=== PATIENT | female | born 1990 | race Caucasian/White ===

== ENCOUNTER 2019-08-08 16:35 | Emergency (ER) | payer OTHER, SELFPAY ==
[2019-08-08 16:55] VITALS: BP 96/52; PULSE 100; RESP 16; TEMP 37.2; O2SAT 100
[2019-08-08 17:02] VITALS: BP 96/52; PULSE 100; RESP 16; TEMP 37.2; O2SAT 100
--- NOTE | 2019-08-08 17:05 | ED.GENADULT ---
HPI - General Adult General Chief complaint: Seizure Stated complaint: seizures Time Seen by Provider: 08/08/19 17:05 History of Present Illness HPI narrative: 29-year-old female presents with complaints of needing her seizure medication Keppra 750mg twice a day refilled due to her neurologist retiring without her knowledge for the past 4 days. Jeremiah says she was notified of the neurologist retiring Wednesday08/04/19 by her pharmacy when she attempted to re-order her Keppra per text. Keppra last on 08/07/19. Last seizure activity 05/11. Seizures are controlled with medications. The patient reports they have not been diagnosed with COVID-19. The patient reports they are not waiting for the results of a COVID-19 lab test. The patient reports they do not have fever, chills, weakness, fatigue, myalgia, or facial swelling. The patient reports they do not have a new or worsening cough or shortness of breath. Denies chest pain. The patient reports they do not have any rhinorrhea, congestion, sore throat, nausea, vomiting, abdominal pain, and diarrhea. Tolerating po intake well. Denies recent traveling. Denies concerns for COVID-19 or exposures been home since [id number] order except for essential household needs, working, and return home. At this time, patient is not suspected of having COVID-19. Some parts of this dictation were generated by voice recognition software and may contain typographical and/or grammatical inaccuracies. Related Data Home Medications Medication Instructions Recorded Confirmed clonazepam 0.5 mg TID PRN 08/08/19 08/08/19 divalproex 500 mg PO BID 08/08/19 08/08/19 levetiracetam 750 mg PO BID 08/08/19 08/08/19 Allergies Allergy/AdvReac Type Severity Reaction Status Date / Time ketorolac Allergy Unknown Hives Verified 08/08/19 16:58 amoxicillin AdvReac Unknown ANXIETY Verified 01/02/19 19:04 milk AdvReac Unknown Diarrhea Verified 01/02/19 19:04 Penicillins AdvReac Unknown Nervousness Verified 01/02/19 19:04 Grass Allergy Severe HIVES Uncoded 01/02/19 19:04 Review of Systems Review of Systems: Narrative: CONSTITUTIONAL: Denies fever, chills, sweats. EYES: Denies visual changes, redness, discharge. ENT: Denies rhinorrhea, congestion, sore throat, otalgia. CARDIOVASCULAR: Denies chest pain, palpitations, edema. RESPIRATORY: Denies dyspnea, wheezing, cough. GASTROINTESTINAL: Denies abdominal pain, nausea, vomiting, diarrhea. GENITOURINARY: Denies dysuria, hematuria, abnormal discharge SKIN: Denies rash or itching. MUSCULOSKELETAL: Denies acute back pain, joint pain, or myalgia. NEUROLOGIC: Denies numbness or focal weakness. Needs medication refill. PSYCHIATRIC: Denies anxiety or depression. All other systems reviewed & are unremarkable except as noted in HPI and below. [facility] Past Medical History Medical History (Updated 08/09/19 @ 00:00 by Yue Pittman) Anxiety Pelvic floor dysfunction Seizures Sponge kidney Surgical History Surgical History (Updated 08/08/19 @ 17:19 by AMERICA Mack) No significant past surgical history Family History Family History (Updated 08/08/19 @ 17:20 by AMERICA Mack) Father Hypertension Mother Depression Social History Social History (Updated 08/08/19 @ 17:21 by AMERICA Mack) Smoking status: Former smoker Second hand tobacco smoke exposure: No Alcohol intake: former Substance use: never Living arrangements: with friend(s) Occupation/Education: unemployed Gender identity (if verbalized by the patient): Female Comments At time of signature, agree with nurse past medical, surgical, social, and family history. There is relevant patient's history pertinent to the presenting complaint but no relevant family history pertinent to the presenting complaint. Exam Narrative: Exam Narrative: GENERAL: This is a well-nourished, well-developed patient, in no apparent distress. Talks in full sentence
== END 2019-08-08 17:30 | disposition home or self-care (01) ==
PROVIDERS: Emergency Provider Nurse Practitioner Family
DX: R56.9 Unspecified convulsions (principal); Z76.0 Encounter for issue of repeat prescription; Z87.891 Personal history of nicotine dependence
CPT/HCPCS: 99213; G0463

== ENCOUNTER 2019-11-23 13:30 | Outpatient (RCR) | payer OTHER, SELFPAY ==
--- NOTE | 2019-10-10 16:58 | PTOPEVAL ---
INITIAL PHYSICAL THERAPY EVALUATION and PLAN OF CARE Thank you for referring Todd Cruz to [facility]. She will be seen 1x/wk x 6 wks. Please review, sign, date and return this plan of care OMAYRA. I agree with and certify that the following plan of care is medically necessary. Referring Physician Date Admitting Provider: Attending Provider: PHYSICIAN NOT ON STAFF Referring Provider: *PT Outpatient Evaluation Start: 10/10/19 14:51 Freq: Status: Active Protocol: Document 10/10/19 14:45 ROMAN (Rec: 10/10/19 15:58 ROMAN [id number]) Therapy Assessment Status Assessment Status Assessment Status Evaluation Outpatient Past Medical History Past Medical History Source of Past Medical History Recalled from Previous Visit, Confirmed with Patient/Family Neurological History Hx Seizures Yes Cardiovascular History Hx Cardiac Disorders No Significant History Respiratory History Hx Respiratory Disorders No Significant History Gastrointestinal History Hx Gastrointestinal Disorders No Significant History Genitourinary History Hx Other Genitourinary Disorders Yes: interstital cystitis/ spongy kidney Musculoskeletal History Hx Musculoskeletal Disorders No Significant History Hematological History Hx Hematological Disorders No Significant History Endocrine History Hx Endocrine Disorders No Significant History HEENT History Hx HEENT Disorders No Significant History Integumentary History Hx Skin Disorders No Significant History Reproductive History Hx Endometriosis Yes Psychosocial History Hx Anxiety Yes Pain History History of Any Previous or Ongoing No Significant History Instance of Pain Anesthesia History Hx Anesthesia Reactions No Significant History Evaluation Information Problem Diagnosis , myalgia of pelvic floor Onset stiffness with midback/pelvis/ hips - start of Subjective Information Gestation - 19 wks due date Query Text:As Reported By Patient/ 03/04/2020 Having increase Family in discomfort with mid back and hips - started about time she got - felt like growing pains and stiffness Discomfort has gotten worse - body likes to lock out. Has been doing more walking lately - feels like a strain, but if doesn't will get stiff. Going to bathroom is easier
--- NOTE | 2019-11-16 14:56 | PCPTNOTE ---
Patient called earlier & cancelled scheduled appointment this date due to transportation issue.
--- NOTE | 2019-11-23 16:23 | PTOPEVAL ---
PHYSICAL THERAPY DISCHARGE SUMMARY Thank you for referring Jeremiah Cruz to [facility].? Melida has been seen for 6 visits. Progress was made towards goals set but pain levels are still elevated. She does have a HEP. At end point with PT at this time. Discharge from PT. I agree with Jeremiah's discharge from PT. Referring Physician Date Admitting Provider: Attending Provider: PHYSICIAN NOT ON STAFF Referring Provider: *PT Outpatient Evaluation Start: 10/10/19 14:51 Freq: Status: Active Protocol: Document 11/23/19 13:30 ROMAN (Rec: 11/23/19 14:32 ROMAN [id number]) Therapy Assessment Status Assessment Status Assessment Status Discharge Evaluation Information Problem Subjective Information Jeremiah reports having an Query Text:As Reported By Patient/ episode of increased back pain Family after last treatment - 2 days after treatment. Still having increased back pain/ stiffness in mornings. Pain Assessment Timing of Pain Assessment Timing of Pain Assessment Assessment Pain Scale Pain Scale Used Numeric (1 - 10) Self Report Pain Assessment Bilateral Hip(s) Reported Pain Level 3 Lowest Pain Intensity 3 Greatest Pain Intensity 7 Posterior Back Reported Pain Level 7 Lowest Pain Intensity 6 Greatest Pain Intensity 9 Pain Score Pain Score 3,7: Self Report Cervical and Lumbar ROM Lumbar ROM Lumbar Flexion (0-90) 40 Query Text:Active in Degrees Lumbar Extension (0-40) 20 Query Text:Active in Degrees Lumbar Lateral Flexion Right (0-40) 15 Query Text:Active in Degrees Lumbar Lateral Flexion Left (0-40) 15 Query Text:Active in Degrees Lumbar Comments increased pain with side bending to L - popping felt in mid thoracic spine Thoracic rotation - L - WNL R - ~ 75% of motion to L - increase discomfort present Palpation Assessment Palpation Palpation pelvic/sacral symmetry in standing - equal SIJ mobility present Good rib cage mobility throughout Improved Squish mobility testing - fairly symmetrical Increased symmetry with trunk/ pelvic posture while in supine Manual Therapy Manual Therapy Manual Therapy Location entire spine,cranial Patient Position
== END 2019-11-28 10:16 | disposition home or self-care (01) ==
LOC: ANHPT 13:30
DX: Z34.90 Encounter for supervision of normal pregnancy, unspecified, unspecified trimester (principal); M79.18 Myalgia, other site
CPT/HCPCS: 97110; 97140; 97162

== ENCOUNTER 2020-08-06 11:00 | Outpatient (RCR) | payer OTHER, SELFPAY ==
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
--- NOTE | 2020-06-25 11:31 | PCPTNOTE ---
Patient did not show up for scheduled appointment this date. Phone call made - pt forgot. Reminded her about her next appointment.
--- NOTE | 2020-07-02 16:59 | PTOPEVAL ---
PHYSICAL THERAPY RE-EVALUATION and UPDATED PLAN OF CARE Thank you for referring Jeremiah Cruz to [facility].? Jeremiah has been seen x 5 visits in PT. Gains are being made towards reduction of back and pelvic floor pain. There has been increase in reduction of tenderness with palpation of levator ani and surrounding tissues. Jeremiah will continue to benefit from skilled PT and she is scheduled to be seen 1x/week for 6 weeks. Please review, sign, date and return this plan of care OMAYRA. I agree with and certify that the following plan of care is medically necessary. Referring Physician Date Admitting Provider: Attending Provider: Susan Conner MD Referring Provider: Therapy Assessment Status Assessment Status Assessment Status Re-evaluation Evaluation Information Problem Diagnosis pelvic pain in female, levator spasm Subjective Information Jeremiah reports that her back Query Text:As Reported By Patient/ pain and discomfort with BM Family have gotten a little better - 10-15%. Hasn't had intercourse for awhile. Pain Assessment Self Report Pain Assessment Back Reported Pain Level 6 Lowest Pain Intensity 6 Greatest Pain Intensity 8 Pelvis Reported Pain Level 7 Lowest Pain Intensity 7 Greatest Pain Intensity 9 Palpation Assessment Palpation Palpation in standing - R anterior innominate present - + R standing flexion test in supine - R anterior innominate - + R Squish test in prone - L on L sacral dysfunction; P-A mob - to sacrum - tender throughout, L5 -3 P-A glides - increased tenderness Lateral glide L5/ S1 - decreased L to R Pelvic Health Evaluation Pelvic Floor Assessment Permission Received for External/ Yes Internal Perineal Exam Internal Perineal Body Palpation no increase in tenderness at introitus, L levator ani, tenderness present at 9 o' clock region - decreased tissue tension throughout - even in region of increased tenderness PT Clinical Summary Clinical Summary Protocol: PTEVCODE PT Clinical Summary Vulvar Pain Functional Questionnaire - 12 pts Jeremiah has made increased progress in regards to decreased tenderness and
--- NOTE | 2020-07-09 11:37 | PCPTNOTE ---
Pt called and cancelled due to ill child.
--- NOTE | 2020-08-13 13:39 | PCPTNOTE ---
Patient called & cancelled scheduled appointment this date due to unknown reason. Pt to call and reschedule re-eval.
--- NOTE | 2020-08-27 18:16 | PCPTNOTE ---
PHYSICAL THERAPY DISCHARGE SUMMARY Admitting Provider: Attending Provider: Susan Conner MD Patient:Jeremiah Cruz Date of :1990 Jeremiah has not returned for any further treatments since 08/06/2020, therefore she will be discharged at this time. Jeremiah?s initial visit was on 05/28/2020 09:30 and she had a total of 10 visits. Jeremiah needed to cancel her last several visits, re-evaluation was not able to be done. The goals have been partially met. Thank you for referring Jeremiah to [facility]. Please review, sign, date and return this discharge summary OMAYRA. I have been updated about Jeremiah's current status and I agree with discharge from the above service at this time. Referring Physician Date
== END 2020-08-26 23:59 | disposition home or self-care (01) ==
LOC: ANHPT 11:00
DX: R10.2 Pelvic and perineal pain (principal); M62.838 Other muscle spasm
CPT/HCPCS: 97110; 97140; 97161

== ENCOUNTER 2021-01-07 15:30 | Outpatient (RCR) | payer OTHER, SELFPAY ==
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
--- NOTE | 2020-12-03 09:55 | PCPTNOTE ---
Patient did not show up for scheduled appointment this date. Jeremiah was phoned. She had been trying to call front clerk unsuccessfully. She has tested + for COVID. Will try to get more appointments rescheduled/scheduled.
--- NOTE | 2020-12-19 16:38 | PTOPEVAL ---
PHYSICAL THERAPY RE-EVALUATION and UPDATED PLAN OF CARE Thank you for referring Jeremiah Cruz to [facility].? Jeremiah has been seen x 4 visits - she had to be quarantined due to COVID, thus was not able to complete initial plan of care. She has not met goals set, she will benefit from continued skiilled PT 1x/week for 4 weeks. Please review, sign, date and return this plan of care OMAYRA. I agree with and certify that the following plan of care is medically necessary. Referring Physician Date Admitting Provider: Attending Provider: Susan Conner MD Referring Provider: Therapy Assessment Status Assessment Status Assessment Status Re-evaluation Evaluation Information Problem Diagnosis pelvic pain in female, levator spasm Subjective Information Jeremiah reports that there Query Text:As Reported By Patient/ has been increase in stress Family last week or so - increase in discomfort and tightness with back. Her mother did have COVID, but she and her son did not come down with symptoms. She did have a COVID injection 2 days ago - L arm is sore from that and mild reaction occurred that night. Still having discomfort when having a bowel movement. Jeremiah reported that she felt much better after treatment today. Pain Assessment Timing of Pain Assessment Timing of Pain Assessment Pre-Treatment Pain Scale Pain Scale Used Numeric (1 - 10) Self Report Pain Assessment Pelvis Reported Pain Level 7 Pain Description Cramping,Soreness,Tightness Lowest Pain Intensity 3 Greatest Pain Intensity 9 Additional Pain Comments increase stress level lately, received COVID vaccine 12/17/20 Pain Score Pain Score 7: Self Report Interventions Used Interventions Used By Clinicians Exercise,Manual Therapy Techniques Cervical and Lumbar ROM Lumbar ROM Lumbar Flexion (0-90) 15 Query Text:Active in Degrees Lumbar Extension (0-40) 15 Query Text:Active in Degrees Lumbar Lateral Flexion Right (0-40) 15 Query Text:Active in Degrees Lumbar Lateral Flexion Left (0-40) 15 Query Text:Active in Degrees Lumbar Comments increase stiffness with spinal segments - throughout, discomfort present with trunk AROM - all motions Muscle Length Testing Muscle Length Testing
--- NOTE | 2020-12-31 16:23 | PCPTNOTE ---
Patient did not show up for scheduled appointment this date. Attempted to call pt - voice mail not set up.
--- NOTE | 2021-01-07 15:47 | PCPTNOTE ---
Jeremiah stated that she was in the hospital last week with vomiting. She did try to call - phone wasn't working properly.
--- NOTE | 2021-01-16 10:25 | PCPTNOTE ---
Jeremiah was out of town at time of today's appointment.
--- NOTE | 2021-01-21 11:32 | PCPTNOTE ---
This treatment is being continued on visit number [id number]. Please see documentation on both accounts to view progress. Completed interventions, outcomes, and problems have been marked as Inactive to facilitate the copying of the Care plan routine for recurring accounts.
== END 2021-01-21 08:18 | disposition home or self-care (01) ==
LOC: ANHPT 15:30
DX: R10.2 Pelvic and perineal pain (principal); M62.838 Other muscle spasm
CPT/HCPCS: 97110; 97140; 97162

== ENCOUNTER 2021-01-28 15:30 | Outpatient (RCR) | payer OTHER, SELFPAY ==
--- NOTE | 2021-01-21 11:33 | PCPTNOTE ---
The treatment documented on this account is a continuation of the treatment documented on visit number [id number]. Please see documentation on both accounts to view progress. The Plan of Care has been transitioned and updated within the new V#. I have addressed and agree with the discipline specific Problems, Interventions, and Goals for the current certification period. Completed interventions, outcomes, and problems have been marked as Inactive to facilitate the copying of the Care plan routine for recurring accounts.
--- NOTE | 2021-01-28 16:52 | PTOPEVAL ---
PHYSICAL THERAPY DISCHARGE SUMMARY Thank you for referring Jeremiah Cruz to [facility].? Jeremiah has been seen x 8 visits. She has made gains with trunk AROM, L LE flexibility, and improved functional abilities. Pain levels can still be elevated. She is to continue to work with increased spinal mobility especially into flexion as a HEP. She is being discharged from PT at this time. I agree with and certify that the following plan of care is medically necessary. Referring Physician Date Admitting Provider: Attending Provider: Susan Conner MD Referring Provider: Therapy Assessment Status Assessment Status Assessment Status Discharge Evaluation Information Problem Diagnosis pelvic pain in female, levator spasm Subjective Information Jeremiah reports feeling a Query Text:As Reported By Patient/ little over stretched after Family last visit. Then began to feel better, then had incident where she was reaching for son while lying down with outstretched arms - ended up falling off of bed and got stuck between bed and changing table. Some increase in back pain since that incident. Working on trying to flex lumbar spine - some soreness from that. Lynn better after treatment. Pain Assessment Timing of Pain Assessment Timing of Pain Assessment Assessment Pain Scale Pain Scale Used Numeric (1 - 10) Self Report Pain Assessment Pelvis Reported Pain Level 7 Pain Description Aching,Dull Other Pain Description pulled muscle in sacrum Lowest Pain Intensity 4 Greatest Pain Intensity 8 Cervical and Lumbar ROM Lumbar ROM Lumbar Flexion (0-90) 40 Query Text:Active in Degrees Lumbar Extension (0-40) 10 Query Text:Active in Degrees Lumbar Lateral Flexion Right (0-40) 15 Query Text:Active in Degrees Lumbar Lateral Flexion Left (0-40) 15 Query Text:Active in Degrees Lumbar Comments increase stiffness with spinal segments - throughout, discomfort present with trunk AROM - all motions Muscle Length Testing Muscle Length Testing Left Hamstring Length -20 Query Text:(90 - 90 Position) Right Hamstring Length -20 Query Text:(90 - 90 Position) Muscle Length Testing Comments gastrocs - L - ~ 10 deg R ~ 10 deg Palpation Assessment Palpation Palpation
== END 2021-01-29 08:34 | disposition home or self-care (01) ==
LOC: ANHPT 15:30
DX: R10.2 Pelvic and perineal pain (principal); M62.838 Other muscle spasm
CPT/HCPCS: 97110; 97140

== ENCOUNTER 2021-04-10 22:42 | Emergency (ER) | payer OTHER, SELFPAY ==
--- NOTE | ~2021-04-10 | XR_ITS ---
XR lumbar spine 2-3V DATE: 04/11/2021 01:23 INDICATION: Fall in shower yesterday; back pain. TECHNIQUE: AP, lateral, coned lateral lumbosacral views COMPARISON: 11/06/2017 CT lumbar spine FINDINGS: Normal alignment of the lumbar spine. No fracture or bone destruction. The lumbar pedicles are intact. No spondylolisthesis. Lumbar and lumbosacral interspaces are well preserved. The sacroili ac joints are normal. IMPRESSION: Negative Reviewed, dictated and finalized at location [facility]. UTIVE PASTRY CHEF IMPRESSION: Negative
--- NOTE | ~2021-04-10 | XR_ITS ---
XR thoracic spine 3V DATE: 04/11/2021 01:23 INDICATION: Fall yesterday in shower. Thoracic and lumbar back pain TECHNIQUE: AP, lateral and swimmer views COMPARISON: None FINDINGS: There is slight thoracic scoliosis. No fracture or dislocation or bone destruction. The tho racic pedicles are intact. No paraspinal soft tissue thickening. IMPRESSION: No evidence of thoracic spine fracture Slight scoliosis Reviewed, dictated and finalized at location [facility]. ATION MONITOR
[2021-04-10 23:07] VITALS: BP 113/60; PULSE 109; RESP 21; TEMP 36.6; O2SAT 100
--- NOTE | 2021-04-10 23:16 | PC.NURSE ---
Pt walking all over W/R and this RN advised she must stay seated. Pt then states I am going outside, Itll help my back and proceeds out. A few seconds later pt states I have to go to the bathroom and ambulated to the restroom w/ no assist.
--- NOTE | 2021-04-10 23:19 | PC.NURSE ---
Pt currently in bathroom sticking her finger down her throat in attempt to vomit. Pt then out to w/r and dry heaving into emesis bag (no output). Pt moaning, coughing. This RN reminded to replace facial mask as per policy. Pt states Ma'am I have epilepsy and I am starting to have a seizure. Pt then starts to have purposeful full body shakes while seated. Pt then stands to ambulate to the w/c. This RN states - you cannot be walking around the waiting area, we need you to stay seated, especially with your history. Pt states Im sorry, i almost fell from the chair, its easier in the wheelchair. Sorry. Pt then placed herself in w/c.
[2021-04-11] MEDS: SODIUM CHLORIDE 0.9% IV 1,000 ML 999 ML IV CONT (00:18)
[2021-04-11] MEDS: diazePAM INJ (*CRX) 10 MG/2 ML SYRINGE 5 MG IV PUSH ×2 (00:19→00:34)
[2021-04-11] MEDS: diphenhydrAMINE HCl INJ 50 MG/ML VIAL IV PUSH (00:19)
[2021-04-11] MEDS: METOCLOPRAMIDE HCL INJ 10 MG/2 ML VIAL IV PUSH (00:19)
[2021-04-11 00:32] LABS: Hematocrit 35.2 % (37.0-47.0); Hemoglobin 12.1 g/dL (12.0-15.0); Immature Granulocyte Absolute 0.01 K/mm3 (0.00-0.031); Immature Granulocyte Percent A 0.2 % (0-0.5); Lymphocytes Absolute Auto 0.73 K/mm3 (0.9-3.2); Lymphocytes Percent Auto 11.4 % (18.3-44.2); Mean Corpuscular HGB Conc 34.4 g/dl (32-36); Mean Corpuscular Hemoglobin 31.1 pg (26-34); Mean Corpuscular Volume 90.5 fl (80-100); Mean Platelet Volume 10.4 fl (7.4-10.4); Monocytes Absolute Auto 0.1 K/mm3 (0.1-0.6); Monocytes Percent Auto 1.1 % (2.6-8.5); Neutrophils Absolute Auto 5.6 K/mm3 (1.3-6.7); Neutrophils Percent Auto 87.3 % (45.5-73.1); Platelet Count Result 323 k/mm3 (150-375); Red Blood Count 3.89 M/mm3 (4.2-5.4); Red Cell Distribution Width 12.9 % (11.5-14.5); White Blood Count 6.4 K/mm3 (4.5-10.0)
[2021-04-11 00:37] LABS: Alanine Aminotransferase 15 U/L (4-35); Albumin Level 4.6 g/dL (3.5-5.1); Alkaline Phosphatase 93 U/L (38-126); Anion Gap 13 mmol/L (8-16); Aspartate Amino Transferase 25 U/L (14-36); Bilirubin,Total 0.5 mg/dL (0.2-1.3); Blood Urea Nitrogen 11 mg/dL (7-17); Carbon Dioxide 21 mmol/L (22-30); Chloride 104 mmol/L (98-107); Estimated CRCL calculation 93 ml/min; Estimated Glomerular Filt Rate > 60; Glucose 147 mg/dL (65-110); Lipase 64 U/L (23-300); Potassium 3.6 mmol/L (3.4-5.0); Sodium 138 mmol/L (137-145)
[2021-04-11 01:06] LABS: Creatine Kinase 120 U/L (30-135)
[2021-04-11 01:06] LABS: Add Urine Microscopic? YES; Appearance Urine Cloudy (Clear); Bilirubin Urine Negative (Negative); Blood Urine 1+ (Negative); Glucose Urine UA 1+ mg/dL (Negative); Ketones Urine Negative (Negative); Leukocyte Esterase Ur Negative LEU/UL (Negative); Mucus Urine Few /lpf; Nitrate Urine Negative (Negative); Protein Urine 1+ mg/dL (Negative); Squamous Epithelial Cell Urine Occasional /hpf (Few); Urobilinogen Urine Negative mg/dL (<2.0)
[2021-04-11 01:07] LABS: Color Urine Light Green (Yellow)
--- NOTE | 2021-04-11 01:10 | ED.GENADULT ---
HPI - General Adult General Chief complaint: Back Pain/Injury Stated complaint: back pain Time Seen by Provider: 04/10/21 23:33 Source: patient and EMS Mode of arrival: EMS Limitations: no limitations History of Present Illness HPI narrative: Patient is a 31 years old white female came to the ED by ambulance complaining of upper back and lower back pain after falling in the shower last night. Her boyfriend is telling me that patient been restless since the foam dispenser, and was seen at 2 emergency room today.. Also telling me that patient had chronic pain over the last 5 years secondary to endometriosis and pelvic pain also some psych disorder and seizure. And has been under a lot of stress lately. He denies that the patient uses narcotics or any drugs. She drinks occasionally, and smokes, no marijuana. Patient is fully vaccinated for COVID-19. Related Data Home Medications Medication Instructions Recorded Confirmed clonazepam 0.5 mg TID PRN 08/08/19 08/08/19 divalproex 500 mg PO BID 08/08/19 08/08/19 levetiracetam 750 mg PO BID 08/08/19 08/08/19 Allergies Allergy/AdvReac Type Severity Reaction Status Date / Time ketorolac Allergy Unknown Hives Verified 04/11/21 00:58 amoxicillin AdvReac Unknown ANXIETY Verified 04/11/21 00:58 milk AdvReac Unknown Diarrhea Verified 04/11/21 00:58 Penicillins AdvReac Unknown Nervousness Verified 04/11/21 00:58 Grass Allergy Severe HIVES Uncoded 04/11/21 00:58 Review of Systems Review of Systems: CONSTITUTIONAL: Denies fever, chills, or sweats. EYES: Denies visual changes, redness, or discharge. ENT: Denies rhinorrhea, congestion, sore throat, or otalgia. CARDIOVASCULAR: Denies chest pain, palpitations, or edema. RESPIRATORY: Denies cough or dyspnea. GASTROINTESTINAL: Denies abdominal pain, nausea, vomiting, or diarrhea. GENITOURINARY: Denies dysuria or hematuria. SKIN: Denies rash or itching. MUSCULOSKELETAL: Muscle pain and spasm NEUROLOGIC: Denies headache, numbness, or weakness. PSYCHIATRIC: Stress and depression PMF Past Medical History Medical History Anxiety Pelvic floor dysfunction Seizures Sponge kidney Surgical History Surgical History No significant past surgical history Family History Family History Father Hypertension Mother Depression Social History Social History Smoking status: Former smoker Second hand tobacco smoke exposure: No Alcohol intake: former Substance use: never Gender identity (if verbalized by the patient): Female Exam Narrative: General appearance: Well-developed, well-nourished, restless, Skin: Normal color Head: Normocephalic, nontraumatic Eyes: Clear conjunctiva ENT: Oropharynx normal, ears normal, nose normal Neck: Supple, nontender Chest and respiratory: Airway patent, no respiratory distress, no accessory muscle use Heart: Regular rate/rhythm Abdomen: Soft, nontender, no organomegaly, quiet bowel sounds Vascular: Normal peripheral pulses, normal capillary refill. Musculoskeletal: Diffuse tenderness of the back, no bruises, no mass, no rash Neurologic: Alert and oriented ?3, ENDOSCOPE TECHNICIAN is normal as tested, no gross motor deficit Course Course Emergency Course: Restless Vital Signs Vital signs: Vital Signs Temperature 36.6 C 04/10/21 23:07 Pulse Rate 109 H 04/10/21 23:07 Respiratory Rate 21 H 04/10/21 23:07 Blood Pressure 113/60 04/10/21 23:07 Pulse Oximetry 100 04/10/21 23:07 Temperature 36.6 C 04/10/21 23:07
[2021-04-11 01:12] LABS: Barbiturate Screen Urine Negative (Negative); Benzodiazepines Screen Urine Positive (Negative)
[2021-04-11 01:17] LABS: Amphetamine Screen Urine Negative (Negative); Cocaine Screen Urine Negative (Negative); Methadone Screen Urine Negative (Negative); Opiate Screen Urine Negative (Negative); Phencyclidine Screen Urine Negative (Negative)
[2021-04-11 01:19] LABS: Cannabinoid Screen Urine Positive (Negative)
[2021-04-11] MEDS: HYDROmorphone HCL INJ (*CRX) 1 MG/ML SYR 0.5 MG IV PUSH (01:42)
[2021-04-11 02:08] VITALS: BP 104/57; PULSE 96; RESP 18; O2SAT 98
== END 2021-04-11 02:14 | disposition home or self-care (01) ==
PROVIDERS: Emergency Provider Emergency Medicine
DX: S39.92XA Unspecified injury of lower back, initial encounter (principal); S29.9XXA Unspecified injury of thorax, initial encounter; F41.9 Anxiety disorder, unspecified; Q61.5 Medullary cystic kidney; Z87.891 Personal history of nicotine dependence; N80.9 Endometriosis, unspecified; W18.2XXA Fall in (into) shower or empty bathtub, initial encounter
CPT/HCPCS: 36415; 51701; 72072; 72100; 80053; 80307; 81001; 81025; 82550; 83690; 85025; 96361; 96374; 96375; 99284; J1170; J1200; J2765; J3360; J7030

== ENCOUNTER 2021-04-11 05:24 | Emergency (ER) | payer OTHER, SELFPAY ==
--- NOTE | ~2021-04-11 | CT_ITS ---
EXAMINATION: CT abdomen pelvis w con DATE: 04/11/2021 07:37 INDICATION: Lower abdominal pain, back pain TECHNIQUE: Computed tomography (CT) of the abdomen and pelvis was performed with 100 cc Omnipaque 350 intravenous contrast. Automated exposure control and iterative reconstruction technique were employe d. Exam dose: 183.41 mGy-cm total exam DLP. COMPARISON: 01/02/2019 pelvic ultrasound examination 10/21/2017 CT abdomen pelvis FINDINGS: The lung bases are clear of infiltrate or consolidation. Normal heart size. No pericardial or pleural effusion. Small sliding hiatal hernia. The liver, gallbladder, bile ducts, spleen, pancreas, pancreatic duct, and adrenal glands and right k idney are unremarkable. 13 mm left renal cyst; the left kidney is otherwise unremarkable. No urinary tract calculus or hydrou reteronephrosis. Normal caliber of the abdominal aorta. No intraperitoneal or retroperitoneal or pelvic mass lesion or adenopathy or ascites. The uterus is retroflexed. There is suggestion of an approximately 2.8 x 3.1 cm heterogeneous largely hyperdense anterior serosal uterine fibroid; differential diagnosis includes much less likely ovaria n mass or torsion. Consider pelvic ultrasound examination. No bowel obstruction, bowel wall thickening, pneumatosis or intraperitoneal free air. Probable append ectomy. IMPRESSION: 2.8 x 3.1 cm heterogeneous largely hyperintense lesion at the anterosuperior aspect of t he fundus of the retroflexed uterus; diffusion diagnosis includes serosal fibroid versus much less li katerin ovarian mass lesion or torsion. Consider pelvic ultrasound correlation Small sliding hiatal hernia 13 mm left renal cyst Reviewed, dictated and finalized at [facility]. Reviewed, dictated and finalized at location [facility]. NT TEACHER IMPRESSION: 2.8 x 3.1 cm heterogeneous largely hyperintense lesion at the ante rosuperior aspect of the fundus of the retroflexed uterus; diffusion diagnosis includes serosal fibroid versus much less likely ovarian mass lesion or torsion . Consider pelvic ultrasound correlation Small sliding hiatal hernia 13 mm left renal cyst
[2021-04-11 05:25] VITALS: BP 112/68; PULSE 90; RESP 20; TEMP 37.1; O2SAT 98
--- NOTE | 2021-04-11 05:43 | PC.NURSE ---
pt up out of bed requesting a drink of water for heartburn advised to get back in bed
[2021-04-11] MEDS: LIDOCAINE 5% PATCH 1 PATCH TRANSDERM (07:01)
[2021-04-11] MEDS: SODIUM CHLORIDE 0.9% IV 1,000 ML 999 ML IV CONT (07:01)
--- NOTE | 2021-04-11 07:01 | ED.BACK ---
HPI - Back Pain/Injury General Chief Complaint: Back Pain/Injury <Chely Heredia MD - Last Filed: 04/11/21 07:46> Stated Complaint: back pain - 4th er visit in 24 hours ( 3 hospital) <Chely Heredia MD - Last Filed: 04/11/21 07:46> Time Seen by Provider: 04/11/21 05:27 <Chely Heredia MD - Last Filed: 04/11/21 07:46> Source: patient <Chely Heredia MD - Last Filed: 04/11/21 07:46> Mode of arrival: EMS <Chely Heredia MD - Last Filed: 04/11/21 07:46> Limitations: no limitations <Chely Heredia MD - Last Filed: 04/11/21 07:46> History of Present Illness HPI Narrative: This is a 31 year old female who presents for evaluation of low back pain. Patient states yesterday she felt that she was passing ovarian cyst because she was having vaginal discharge. She states she fell onto floor and she hit her back on shower edge. She has been evaluated 3 other times in past 24 hours for this pain. She states she has xrays and discharged home. She was prescribed lidocaine patch but she did not get that prescription filled. She was seen in [place] ER and discharged approximately 3 hours ago. During that visit, she was witness to have pseudoseizures. She was given valium and IV dilaudid. It is suspected that she may be pain medication seeking. She reports nausea and vomiting and she was found to place fingers in her mouth as well. She had labs and back xrays last night. <Chely Heredia MD - Last Filed: 04/11/21 07:46> Related Data Home Medications: Home Medications Medication Instructions Recorded Confirmed clonazepam 0.5 mg TID PRN 08/08/19 08/08/19 divalproex 500 mg PO BID 08/08/19 08/08/19 levetiracetam 750 mg PO BID 08/08/19 08/08/19 <Chely Heredia MD - Last Filed: 04/11/21 07:46> Allergies/Adverse Reactions: Allergies Allergy/AdvReac Type Severity Reaction Status Date / Time ketorolac Allergy Unknown Hives Verified 04/11/21 00:58 amoxicillin AdvReac Unknown ANXIETY Verified 04/11/21 00:58 milk AdvReac Unknown Diarrhea Verified 04/11/21 00:58 Penicillins AdvReac Unknown Nervousness Verified 04/11/21 00:58 Grass Allergy Severe HIVES Uncoded 04/11/21 00:58 <Chely Heredia MD - Last Filed: 04/11/21 07:46> Review of Systems Review of Systems: All systems reviewed & are unremarkable except as noted in HPI and below <Chely Heredia MD - Last Filed: 04/11/21 07:46> [facility] Past Medical History Medical History: Medical History (Updated 04/11/21 @ 08:04 by Jose Kaur MD) Anxiety Endometriosis Ovarian cyst Pelvic floor dysfunction Seizures Sponge kidney <Chely Heredia MD - Last Filed: 04/11/21 07:46> Surgical History Surgical History: Surgical History No significant past surgical history <Chely Heredia MD - Last Filed: 04/11/21 07:46> Family History Family History: Family History Father Hypertension Mother Depression <Chely Heredia MD - Last Filed: 04/11/21 07:46> Social History Social History: Social History Smoking status: Former smoker Second hand tobacco smoke exposure: No Alcohol intake: former Substance use: never Gender identity (if verbalized by the patient): Female <Chely Heredia MD - Last Filed: 04/11/21 07:46> Exam Const: General: alert <Chely Heredia MD - Last Filed: 04/11/21 07:46> Orientation/consciousness: patient oriented x3 <Chely Heredia MD - Last Filed: 04/11/21 07:46> HENMT: Head: normocephalic and atraumatic <Chely Heredia MD - Last Filed: 04/11/21 07:46> Face and sinus: normal facial exam, sinuses nontender and face symmetric <Chely Heredia MD - Last Filed: 04/11/21 07:46> Mouth: Yes Normal oral and palatal mucosa present, Yes lip normal, Yes tongue normal and Ye
[2021-04-11] MEDS: ONDANSETRON INJ 4 MG/2 ML VIAL IV PUSH (07:18)
[2021-04-11 07:24] VITALS: BP 110/71; O2SAT 100
== END 2021-04-11 08:52 | disposition left against medical advice (07) ==
PROVIDERS: General Practice; Emergency Provider Emergency Medicine
DX: S39.92XA Unspecified injury of lower back, initial encounter (principal); F41.9 Anxiety disorder, unspecified; N80.9 Endometriosis, unspecified; Q61.5 Medullary cystic kidney; Z87.891 Personal history of nicotine dependence; K44.9 Diaphragmatic hernia without obstruction or gangrene; N28.1 Cyst of kidney, acquired; N85.9 Noninflammatory disorder of uterus, unspecified
CPT/HCPCS: 74177; 87070; 87491; 87591; 87808; 96361; 96374; 99284; A9270; J2405; J7030; Q9967

== ENCOUNTER 2021-05-04 16:45 | Emergency (ER) | payer OTHER, SELFPAY ==
[2021-05-04 17:04] VITALS: BP 130/83; PULSE 82; RESP 16; TEMP 36.7; O2SAT 96
--- NOTE | 2021-05-04 17:25 | ED.PSYCH ---
HPI - Psych General Chief Complaint: Psychiatric Symptoms Stated Complaint: psychosis Time Seen by Provider: 05/04/21 16:55 Source: patient Mode of arrival: ambulatory Limitations: no limitations History of Present Illness HPI Narrative: Patient is a 31-year-old female complaining of I am having a psychotic episode described as hallucinations, paranoid delusions, I cannot think properly I am forgetting things , started 2 weeks ago but was better after she was prescribed clonazepam and states that she ran out a week ago. Patient states that she was seen at another hospital this past week for the same complaint was given Haldol which improved her symptoms, but ran out. Patient denies any suicidal or homicidal thoughts. Patient denies any thoughts of hurting herself or others. Related Data Home Medications Medication Instructions Recorded Confirmed clonazepam 0.5 mg TID PRN 08/08/19 08/08/19 divalproex 500 mg PO BID 08/08/19 08/08/19 levetiracetam 750 mg PO BID 08/08/19 08/08/19 Allergies Allergy/AdvReac Type Severity Reaction Status Date / Time ketorolac Allergy Unknown Hives Verified 04/11/21 00:58 amoxicillin AdvReac Unknown ANXIETY Verified 04/11/21 00:58 milk AdvReac Unknown Diarrhea Verified 04/11/21 00:58 Penicillins AdvReac Unknown Nervousness Verified 04/11/21 00:58 Grass Allergy Severe HIVES Uncoded 04/11/21 00:58 Review of Systems Review of Systems: All systems reviewed & are unremarkable except as noted in HPI and below Constitutional: Constitutional: Denies body ache(s), Denies chills, Denies excessive sweating, Denies fatigue, Denies fever(s), Denies headache(s), Denies lethargy, Denies malaise, Denies weakness and Denies weight loss Eyes: Eyes: Denies blurry vision, Denies change in vision and Denies loss of vision ENT: Denies dizziness, Denies ear discharge, Denies headache(s), Denies lip swelling, Denies epistaxis, Denies nasal congestion, Denies neck pain, Denies throat swelling and Denies tongue swelling Cardiovascular: Cardiovascular: Denies chest pain, Denies chest pain at rest, Denies chest pain with activity, Denies diaphoresis, Denies rapid heart rate, Denies edema, Denies irregular heart rhythm, Denies lightheadedness, Denies palpitations, Denies dyspnea and Denies dyspnea on exertion Respiratory: Respiratory: Denies chest congestion, Denies cough, Denies hemoptysis, Denies dyspnea and Denies dyspnea on exertion Gastrointestinal: Gastrointestinal: Denies abdominal pain, Denies melena, Denies hematochezia, Denies diarrhea, Denies nausea, Denies vomiting and Denies hematemesis Musculoskeletal: Musculoskeletal: Denies abnormal gait, Denies deformity, Denies joint swelling, Denies limited range of motion, Denies neck pain and Denies numbness Neurologic: Denies Abnormal speech present, Denies abnormal gait, Denies confusion, Denies dizziness, Denies headache(s), Denies focal weakness, Denies loss of vision, Denies numbness, Denies Other visual disturbances, Denies Sensory deficit (Neuro) and Denies weakness Psychiatric: Psychiatric: Denies depression, Denies homicidal ideation and Denies suicidal ideation Endocrine: Endocrine: Denies cold intolerance, Denies excessive sweating, Denies fatigue, Denies heat intolerance and Denies palpitations Hematologic/Lymphatic: Hematologic/Lymphatic: Denies easy bleeding and Denies easy bruising Allergic/Immunologic: Allergic/Immunologic: Denies lip swelling, Denies throat swelling and Denies tongue swelling PMFSH Past Medical History Medical History Anxiety Endometriosis Ovarian cyst Pelvic floor dysfunction Seizures Sponge kidney Surgical History Surgical History No significant past surgical history Family History Family History Father Hypertension Mother Depression Social History S
[2021-05-04 17:50] LABS: Basophils Percent Auto 0.5 % (0.2-1.2); Eosinophils Percent Auto 0.2 % (0-4.4); Immature Granulocyte Absolute 0.01 K/mm3 (0.00-0.031); Immature Granulocyte Percent A 0.2 % (0-0.5); Lymphocytes Absolute Auto 2.02 K/mm3 (0.9-3.2); Lymphocytes Percent Auto 30.7 % (18.3-44.2); Mean Corpuscular HGB Conc 33.3 g/dl (32-36); Mean Corpuscular Hemoglobin 30.5 pg (26-34); Mean Corpuscular Volume 91.4 fl (80-100); Mean Platelet Volume 10.4 fl (7.4-10.4); Monocytes Absolute Auto 0.3 K/mm3 (0.1-0.6); Monocytes Percent Auto 4.9 % (2.6-8.5); Neutrophils Absolute Auto 4.2 K/mm3 (1.3-6.7); Neutrophils Percent Auto 63.5 % (45.5-73.1); Platelet Count Result 235 k/mm3 (150-375); Red Blood Count 3.94 M/mm3 (4.2-5.4); Red Cell Distribution Width 12.7 % (11.5-14.5); White Blood Count 6.6 K/mm3 (4.5-10.0)
[2021-05-04 17:59] LABS: Acetaminophen < 10 ug/mL (10-30); Ethanol < 10 mg/dL (<10); Salicylate < 1.0 mg/dL (2-20)
[2021-05-04 18:01] LABS: Anion Gap 11 mmol/L (8-16); Blood Urea Nitrogen 5 mg/dL (7-17); Calcium 9.1 mg/dL (8.4-10.2); Carbon Dioxide 23 mmol/L (22-30); Chloride 103 mmol/L (98-107); Estimated Glomerular Filt Rate > 60; Glucose 110 mg/dL (65-110); Potassium 3.4 mmol/L (3.4-5.0); Sodium 137 mmol/L (137-145)
[2021-05-04 18:05] LABS: Amphetamine Screen Urine Negative (Negative); Barbiturate Screen Urine Negative (Negative); Benzodiazepines Screen Urine Negative (Negative); Cannabinoid Screen Urine Positive (Negative); Cocaine Screen Urine Negative (Negative); Methadone Screen Urine Negative (Negative); Opiate Screen Urine Negative (Negative); Phencyclidine Screen Urine Negative (Negative)
[2021-05-04 18:18] LABS: Add Urine Microscopic? YES; Appearance Urine Clear (Clear); Bacteria Urine Trace /hpf; Bilirubin Urine Negative (Negative); Blood Urine 1+ (Negative); Color Urine Blue (Yellow); Glucose Urine UA Negative (Negative); Ketones Urine Negative (Negative); Leukocyte Esterase Ur Negative LEU/UL (Negative); Mucus Urine Rare /lpf; Nitrate Urine Negative (Negative); Protein Urine Negative (Negative); RBC Urine 0-2 /hpf (0-2); Specific Grav Ur 1.008 (1.001-1.035); Squamous Epithelial Cell Urine Rare /hpf (Few); Urobilinogen Urine Negative mg/dL (<2.0); WBC Urine 0-3 /hpf
[2021-05-04 18:31] LABS: Thyroid Stimulating Hormone 0.297 uIU/mL (0.465-4.680)
[2021-05-04 19:30] VITALS: BP 125/88; PULSE 91; RESP 18; TEMP 36.3; O2SAT 99
--- NOTE | 2021-05-04 19:43 | PC.NURSE ---
Currently awaiting arrival of crisis castings trimmer. Pt has come out of room multiple times since 1800 to request her nurse to c/o 'feeling so anxious'. Pt appears in no acute distress. speech clear, appropriate. a/o x 4 with good eye contact.
--- NOTE | 2021-05-04 19:56 | PC.NURSE ---
Pt seen walking out of ED 15 with her coat. This RN followed pt and on her way out of dept, this RN asked if she was leaving. Pt did not respond and continued out of dept. with steady, even, unassisted gait. However, pt had left her cell phone and a bag of personal belongings in her room. ED RN Yoel notified, and he went outside to see if pt in view. Escorted pt back in. ED MD Vick notified, and he said that since pt is NOT suicidal/homicidal, pt could leave if she wanted to. Pt asked if she would like to stay and be evaluated or if she wanted to leave. Pt stated she wanted to leave. AMA form signed. all belongings retrieved and pt ambulatory c steady, even, unassisted gait to exit.
--- NOTE | 2021-05-04 20:04 | PC.NURSE ---
UPDATE: home support worker arriving as pt leaving ED wr. Pt and fruit ii farmworker walked back into dept. and pt decided to stay to be evaluated. Face sheet printed by this RN and provided to fruit ii farmworker. Currently in room being assessed. ED MD Vick aware of change.
[2021-05-04 20:09] LABS: SARS-CoV-2 RNA PCR Negative
[2021-05-04 20:29] VITALS: BP 127/75; PULSE 88; RESP 16; O2SAT 99
== END 2021-05-04 20:32 | disposition home or self-care (01) ==
PROVIDERS: Emergency Provider Emergency Medicine
DX: F22 Delusional disorders (principal); F41.9 Anxiety disorder, unspecified; Z20.822 Contact with and (suspected) exposure to COVID-19; Q61.5 Medullary cystic kidney; Z87.891 Personal history of nicotine dependence; N80.9 Endometriosis, unspecified
CPT/HCPCS: 36415; 80048; 80307; 81001; 81025; 84443; 85025; 99284; C9803; U0003; U0005

== ENCOUNTER 2022-09-17 23:29 | Emergency (ER) | payer OTHER, SELFPAY ==
--- NOTE | ~2022-09-17 | CT_ITS ---
CT of the Abdomen and Pelvis: Indication: Abdominal pain Technique: 2.5 mm axial scans were obtained through the abdomen and pelvis following intravenous adm inistration of 100 cc of Omnipaque 350. Dose reduction technique was used on this scan by utilizing a utomated exposure control and iterative reconstruction technique. The dose-length product (DLP) was 1 78.76 mGy-cm. COMPARISON: 04/11/2021 Findings: Scans through the lung bases are unremarkable. The liver, spleen, pancreas, gallbladder, adrenals and kidneys are within normal limits. No evidence of aortic aneurysm. No lymphadenopathy. No bowel obstruction or bowel wall thickening. There is no evidence to suggest acute appendicitis. Images through the pelvis were performed. Urinary bladder unremarkable. Stable uterine fibroid noted. No ascites. Impression: Stable uterine fibroid. No acute abnormality seen. Reviewed, dictated and finalized at [facility]. Impression: Stable uterine fibroid. No acute abnormality seen.
[2022-09-17 23:57] LABS: Basophils Percent Auto 0.4 % (0.2-1.2); Eosinophils Percent Auto 0.4 % (0-4.4); Hemoglobin 12.2 g/dL (12.0-15.0); Immature Granulocyte Absolute 0.01 K/mm3 (0.00-0.031); Immature Granulocyte Percent A 0.1 % (0-0.5); Lymphocytes Absolute Auto 1.22 K/mm3 (0.9-3.2); Lymphocytes Percent Auto 17.2 % (18.3-44.2); Mean Corpuscular Hemoglobin 31.4 pg (26-34); Mean Corpuscular Volume 95.1 fl (80-100); Mean Platelet Volume 11.7 fl (7.4-10.4); Monocytes Absolute Auto 0.3 K/mm3 (0.1-0.6); Monocytes Percent Auto 3.5 % (2.6-8.5); Neutrophils Absolute Auto 5.5 K/mm3 (1.3-6.7); Neutrophils Percent Auto 78.4 % (45.5-73.1); Platelet Count Result 181 k/mm3 (150-375); Red Blood Count 3.89 M/mm3 (4.2-5.4); Red Cell Distribution Width 12.3 % (11.5-14.5); White Blood Count 7.1 K/mm3 (4.5-10.0)
[2022-09-18 00:07] LABS: Alanine Aminotransferase 14 U/L (6-35); Albumin Level 4.4 g/dL (3.5-5.1); Alkaline Phosphatase 75 U/L (38-126); Anion Gap 5 mmol/L (8-16); Aspartate Amino Transferase 23 U/L (14-36); Bilirubin,Total 0.3 mg/dL (0.2-1.3); Blood Urea Nitrogen 6 mg/dL (7-17); Calcium 8.2 mg/dL (8.4-10.2); Carbon Dioxide 28 mmol/L (22-30); Chloride 106 mmol/L (98-107); Estimated CRCL calculation 91 ml/min; Estimated Glomerular Filt Rate > 60; Glucose 107 mg/dL (65-110); Lipase 64 U/L (23-300); Potassium 3.9 mmol/L (3.4-5.0); Sodium 139 mmol/L (137-145)
[2022-09-18 00:19] VITALS: PULSE 100; RESP 23
--- NOTE | 2022-09-18 00:24 | ED.GENADULT ---
HPI - General Adult General Chief complaint: Abdominal Pain <Dave Gaston PA-C - Last Filed: 09/18/22 20:25> Stated complaint: abd pain <Dave Gaston PA-C - Last Filed: 09/18/22 20:25> Time Seen by Provider: 09/18/22 00:11 <Dave Gaston PA-C - Last Filed: 09/18/22 20:25> Source: patient <ELIZABETH Acosta Last Filed: 09/18/22 20:25> Mode of arrival: ambulatory <ELIZABETH Acosta Last Filed: 09/18/22 20:25> Limitations: no limitations <Dave Gaston PA-C - Last Filed: 09/18/22 20:25> History of Present Illness HPI narrative: This is a 32-year-old female with PMH of endometriosis, anxiety, ovarian cyst, kidney disease who presents to the ED via EMS with chief complaint of suprapubic abdominal pain and left lumbosacral back pain onset 9 days ago and worse tonight. Patient states that she is having an endometriosis flare and that this pain is very familiar to her. According to triage note patient was seen at another facility earlier today and left AMA. I asked her about this and she said that they tried to give her Toradol and she is allergic. Patient also reports some difficulties with urination, painful urination. Endorses nausea with no vomiting. States she smoked marijuana earlier today to try to help with the nausea. Denies saddle anesthesia, bowel incontinence, numbness or weakness in the extremities. Denies fevers, chills, chest pain, shortness of breath, flank pain, cough. During the history and physical, patient intermittently willingly shakes her body but continues to respond and make eye contact. Reports longstanding history of drug abuse but states last time she used was over two years ago. <Dave Gaston PA-C - Last Filed: 09/18/22 20:25> Related Data Home medications: Home Medications Medication Instructions Recorded Confirmed clonazepam 0.5 mg tablet 0.5 mg TID PRN Anxiety 08/08/19 08/08/19 divalproex 500 mg tablet,delayed 500 mg PO BID 08/08/19 08/08/19 release levetiracetam 750 mg tablet 750 mg PO BID 08/08/19 08/08/19 <Dave Gaston PA-C - Last Filed: 09/18/22 20:25> Allergies/adverse reactions: Allergies Allergy/AdvReac Type Severity Reaction Status Date / Time ketorolac Allergy Unknown Hives Verified 09/17/22 23:31 amoxicillin AdvReac Unknown ANXIETY Verified 09/17/22 23:31 milk AdvReac Unknown Diarrhea Verified 09/17/22 23:31 Penicillins AdvReac Unknown Nervousness Verified 09/17/22 23:31 Grass Allergy Severe HIVES Uncoded 09/17/22 23:31 <Dave Gaston PA-C - Last Filed: 09/18/22 20:25> [facility] Past Medical History Medical History: Medical History Anxiety Endometriosis Ovarian cyst Pelvic floor dysfunction Seizures Sponge kidney <Dave Gaston PA-C - Last Filed: 09/18/22 20:25> Surgical History Surgical History: Surgical History No significant past surgical history <Dave Gaston PA-C - Last Filed: 09/18/22 20:25> Family History Family History: Family History Father Hypertension Mother Depression <Dave Gaston PA-C - Last Filed: 09/18/22 20:25> Social History Social History: Social History Smoking status: Former smoker Second hand tobacco smoke exposure: No Alcohol intake: former Substance use: never Substance use type: marijuana Living arrangements: with friend(s) Occupation/Education: unemployed Gender identity (if verbalized by the patient): Female <ELIZABETH Acosta Last Filed: 09/18/22 20:25> Exam Narrative: GENERAL: Writhing in bed. Intermittently shaking. Responds to all of my questions. HEAD: Normocephalic, atraumatic. EYES: PERRLA and EOMI. ENT: Nares clear, no rhinorrhea or epistaxis. Mucous membranes moist. Oropharynx w
[2022-09-18 00:50] LABS: Appearance Urine Clear (Clear); Bilirubin Urine Negative (Negative); Blood Urine 1+ (Negative); Color Urine Yellow (Yellow); Glucose Urine UA Negative (Negative); Ketones Urine Negative (Negative); Leukocyte Esterase Ur Negative LEU/UL (Negative); Nitrate Urine Negative (Negative); Protein Urine Negative (Negative); Urobilinogen Urine 0.2 mg/dL (<2.0)
[2022-09-18 00:51] LABS: Add Urine Microscopic? YES
[2022-09-18] MEDS: ONDANSETRON INJ 4 MG/2 ML VIAL IV PUSH (00:55)
[2022-09-18] MEDS: HYDROmorphone HCL INJ (*CRX) 1 MG/ML SYR 0.5 MG IV PUSH (00:56)
[2022-09-18 04:01] LABS: Amphetamine Screen Urine Negative (Negative); Barbiturate Screen Urine Negative (Negative); Benzodiazepines Screen Urine Positive (Negative); Cannabinoid Screen Urine Positive (Negative); Cocaine Screen Urine Negative (Negative); Methadone Screen Urine Negative (Negative); Opiate Screen Urine Negative (Negative); Phencyclidine Screen Urine Negative (Negative)
[2022-09-18 04:09] LABS: Pregnancy On Board Control Positive; Urine Pregnancy Test Negative
== END 2022-09-18 04:10 | disposition left against medical advice (07) ==
LOC: ANHED 09-18 00:21
PROVIDERS: Emergency Medicine; Emergency Provider Physician Assistant
DX: R10.30 Lower abdominal pain, unspecified (principal); N80.9 Endometriosis, unspecified; F41.9 Anxiety disorder, unspecified; Q61.5 Medullary cystic kidney; Z87.891 Personal history of nicotine dependence
CPT/HCPCS: 36415; 74177; 80053; 80307; 81001; 81025; 83690; 85025; 96374; 96375; 99284; J1170; J1200; J1630; J2405; Q9967

== ENCOUNTER 2023-01-27 13:15 | Outpatient (RCR) | payer OTHER, SELFPAY ==
--- NOTE | 2022-12-18 10:44 | OPREHPOC ---
Outpatient Therapy Plan of Care This is a Multidisciplinary Plan of Care that may contain components documented by all disciplines (PT, OT, and ST.) PT Problem 1 PT Problem #1 Knowledge Deficit PT Goal 1 Goal 1. Patient will perform independent HEP Target Visit 9 PT Problem 2 PT Problem #2 Pain PT Goal 1 Goal 1. Patient will report pain no higher than 2/10 with pelvic exam Target Visit 9 PT Problem 3 PT Problem #3 Impaired Functional ADLs PT Goal 1 Goal 1. Pt able to do all ADL's and work activities with pain no higher than 4/10 Target Visit 9
--- NOTE | 2022-12-18 10:45 | PTOPEVAL1 ---
Assessment and note entered by Jodi Munguia DPT Evaluation Information Assessment Status Evaluation Subjective Information Pt reports she has been diagnosed with endo, IC, and pelvic floor dysfunction. Is getting a lot of back and pelvic pain. Highest pain recently 10/10 and lowest 4/10. Pelvic pain is worse in the morning and sometimes gets shooting pain. Pain with sexual activity some of the time, pain with using a tampon for more than 1 hour, and with pap smear or pelvic exam. Urinates 1 time a day and wakes up multiple times to urinate a night. Previous bladder installations but reports they did not help with the bladder pain. Can hold urine a long time but difficulty initiating stream. Leaks urine a few times a month. BM once a day with pain. Pt has been 1 time with C- section delivery in 2019. Two previous laparoscopic surgeries for endo and may be getting another one. Patient goal: decrease pain, improve flexibility and mobility. Pt reports she does her daily activities with pain due to having a child and has to. Reports she has difficulty working at times due to the pain. Difficulty sitting for a prolonged period of time like while driving. No appointment scheduled with MD at this time. Also has a history of epilepsy. Reported Pain Level Pain Score 8: Self Report Assessment PT Clinical Summary The patient is presenting to skilled therapy with back, abdomen, and pelvic pain, as well as diagnoses of endometriosis and IC. She presents with decreased LE strength, tenderness to palpation, and increased pelvic floor muscle tone which are contributing to her pain and difficulty performing most ADL's, prolonged sitting, and tolerating pelvic exams. She will highly benefit from therapy to address these impairments and reduce pain and dysfunction. Plan of Care Interventions Electrical Stimulation,Gait Training,Hot Pack/Cold Pack,Manual Therapy,Neuro Re-education,Patient/ Caregiver Education,Therapeutic Activities, Therapeutic Exercise PT Services Indicated Yes Treatment Frequency and 1 time a week for 8 visits Duration These treatments will address the objective and functional deficits as d
--- NOTE | 2022-12-25 08:08 | PCPTNOTE ---
Patient called to cancel appointment on 12/25/22 due to needing to take her cat to the vet.
--- NOTE | 2023-01-12 09:45 | PCPTNOTE ---
Patient did not show up for appointment 01/12/23. When called patient stated she was sick and will be in next week.
--- NOTE | 2023-01-19 11:25 | PCPTNOTE ---
Patient called to cancel appointment for 01/19/23. She rescheduled to next week.
--- NOTE | 2023-01-27 13:56 | OPREHPOC ---
Outpatient Therapy Plan of Care This is a Multidisciplinary Plan of Care that may contain components documented by all disciplines (PT, OT, and ST.) PT Problem 1 PT Problem #1 Knowledge Deficit PT Goal 1 Goal 1. Patient will perform independent HEP Target Visit 9 Progress Partially Met PT Problem 2 PT Problem #2 Pain PT Goal 1 Goal 1. Patient will report pain no higher than 2/10 with pelvic exam Target Visit 9 Progress Partially Met PT Problem 3 PT Problem #3 Impaired Functional ADLs PT Goal 1 Goal 1. Pt able to do all ADL's and work activities with pain no higher than 4/10 Target Visit 9 Progress Partially Met
--- NOTE | 2023-01-27 13:56 | PTOPPROG ---
Assessment and note entered by Jodi Munguia DPT Evaluation Information Assessment Status Progress Subjective Information Pt reports she feels sore after therapy. Highest pain 8/10 and lowest 3/10. Pain seems to increase with stress, navigating stairs, walking like to go grocery shopping. Assessment PT Clinical Summary Pt has attended therapy for 3 sessions and demonstrates slight progress. She demonstrates improved LE strength and slightly decreased pelvic pain with palpation. She continues to have high pain levels that are affecting her ability to do activities like walk and navigate stairs. She will benefit from further therapy to address her pain and impairments in order to return to prior level of function. Plan of Care Interventions Electrical Stimulation,Gait Training,Hot Pack/Cold Pack,Manual Therapy,Neuro Re-education,Patient/ Caregiver Education,Therapeutic Activities, Therapeutic Exercise PT Services Indicated Yes Treatment Frequency and 1 visit every other week for 2-4 visits Duration These treatments will address the objective and functional deficits as defined above. The patient will be advanced safely and appropriately in order for the patient to progress towards his/her prior level of function. Additional exercises will be introduced and as well as a comprehensive home exercise program upon discharge, if needed, ?to ensure carryover of functional gains achieved in the clinic. This treatment plan has been reviewed and agreement upon by the patient.
--- NOTE | 2023-02-17 13:54 | PCPTNOTE ---
Patient called to cancel appointment due to starting her menstrual cycle.
--- NOTE | 2023-02-24 15:26 | PTOPDC ---
Assessment and note entered by Jodi Munguia, DPT Evaluation Information Assessment Status Discharge - Pt Not Present Subjective Information - Assessment PT Clinical Summary Patient did not show up for appointment 02/24/23. She has not attended therapy since 01/27/23 and will be discharged per attendance policy. Plan of Care PT Services Indicated No
== END 2023-02-25 09:18 | disposition home or self-care (01) ==
LOC: ANHPT 13:15
DX: R10.2 Pelvic and perineal pain (principal)
CPT/HCPCS: 97110; 97140; 97162; 99199